=== PATIENT | female | born 1975 | race Caucasian/White ===

== ENCOUNTER 2019-04-15 15:41 | Observation (INO) ==
[2019-04-15] MEDS ORDERED: DUONEB 0.5 MG/3 MG ONE (16:02)
[2019-04-15] MEDS ORDERED: DUONEB 0.5 MG/3 MG NEB ONE (16:02)
[2019-04-15] MEDS ORDERED: NS 1000 ML 1,000 ML ONE ×2 (16:16→17:22)
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
[2019-04-15] MEDS ORDERED: NS 1000 ML 1,000 ML IV ONE ×2 (16:25→17:34)
[2019-04-15 16:31] LABS: BASOPHILS % (AUTO) 0.4 % (0.2-1.0); EOSINOPHILS # (AUTO) 0.2 x10^3/uL (0.0-0.2); EOSINOPHILS % (AUTO) 2.3 % (0.9-2.9); HEMATOCRIT 34.4 % (36.0-47.0); HEMOGLOBIN 11.4 g/dL (12.0-16.0); LYMPHOCYTES # (AUTO) 1.5 X10^3/uL (1.3-2.9); LYMPHOCYTES % (AUTO) 16.4 % (21.0-51.0); MEAN CORPUSCULAR HEMOGLOBIN 26.2 pg (27.0-34.0); MEAN CORPUSCULAR VOLUME 79.5 fL (80.0-100.0); MEAN PLATELET VOLUME 7.5 fL (7.4-11.0); MONOCYTES # (AUTO) 0.9 x10^3/uL (0.3-0.8); MONOCYTES % (AUTO) 9.9 % (0.0-13.0); NEUTROPHILS # (AUTO) 6.4 x10^3/uL (2.2-4.8); PLATELET COUNT 199 X10^3/uL (150.0-450.0); RED BLOOD COUNT 4.33 X10^6/uL (3.5-5.4); RED CELL DISTRIBUTION WIDTH 23.7 % (11.6-16.5)
[2019-04-15 16:52] LABS: ALANINE AMINOTRANSFERASE 79 Units/L (12-78); ALKALINE PHOSPHATASE 92 Units/L (46-116); ASPARTATE AMINO TRANSFERASE 26 Units/L (15-37); BLOOD UREA NITROGEN 25 mg/dL (7-18); CALCIUM 8.4 mg/dL (8.5-10.1); CARBON DIOXIDE 27.7 mmol/L (21-32); CHLORIDE 106 mmol/L (98-107); CKMB % 4.5 % (<4); COR CA(FOR HYPOALB) 9.2 mg/dL (8.5-10.1); COR NA(FOR HYPERGLY) 143 mmol/L (136-145); CREATINE KINASE 29 Units/L (26-192); CREATINE KINASE MB 1.3 ng/mL (0-4.0); CREATININE 1.75 mg/dL (0.55-1.02); SODIUM 142 mmol/L (136-145); TOTAL PROTEIN 6.5 g/dL (6.4-8.2); TROPONIN I < 0.02 ng/mL (0-1.5); eGFR NON BLACK RACES 33 (>60)
[2019-04-15 17:02] LABS: PLATELET MORPHOLOGY COMMENT NORMAL (NORMAL)
[2019-04-15 17:04] LABS: ANISOCYTOSIS 2+; HYPOCHROMASIA SLIGHT; MICROCYTOSIS SLIGHT; SCHISTOCYTES SLIGHT
[2019-04-15] MEDS: NS 1000 ML 1,000 ML IV SCH (20:17)
[2019-04-15] MEDS ORDERED: ATARAX TAB 25 MG PO PRN (21:56)
[2019-04-15] MEDS ORDERED: KLONOPIN TAB 0.5 MG PO PRN (21:56)
[2019-04-15] MEDS ORDERED: SINGULAIR TAB 10 MG PO SCH (21:56)
[2019-04-15] MEDS ORDERED: ALBUTEROL SULFATE IN SCH (21:56)
[2019-04-15 22:34] VITALS: BMI 47.7
[2019-04-15] MEDS ORDERED: PREVNAR 13 IM ONE (22:34)
[2019-04-15 23:13] LABS: CKMB % 3.5 % (<4); CREATINE KINASE 29 Units/L (26-192); CREATINE KINASE MB < 1.0 ng/mL (0-4.0); TROPONIN I < 0.02 ng/mL (0-1.5)
[2019-04-15] MEDS: ZOLOFT PO SCH (23:39)
[2019-04-15] MEDS: ZOCOR TAB 40 MG PO SCH (23:39)
[2019-04-15] MEDS: BUSPAR PO SCH (23:40)
[2019-04-15] MEDS: VISTARIL PO PRN (23:40)
[2019-04-15] MEDS: CELEXA PO SCH (23:40)
[2019-04-15] MEDS: KENALOG CREAM EXT SCH (23:41)
[2019-04-16] MEDS ORDERED: PROVENTIL NEB TX 0.083% 2.5MG/ 3ML NEB SCH
[2019-04-16] MEDS: PROVENTIL NEB TX 0.083% 2.5MG/ 3ML NEB SCH ×4 (00:10→17:35)
[2019-04-16 03:25] LABS: BILIRUBIN,URINE NEGATIVE (NEGATIVE); BLOOD/HEMOGLOBIN,URINE NEGATIVE (NEGATIVE); GLUCOSE, URINE NEGATIVE (NEGATIVE); KETONES,URINE NEGATIVE (NEGATIVE); LEUKOCYTE ESTERASE ,URINE NEGATIVE (NEGATIVE); NITRITES,URINE NEGATIVE (NEGATIVE); PROTEIN,URINE NEGATIVE (NEGATIVE); UROBILINOGEN,URINE NORMAL (NORMAL)
[2019-04-16 03:27] LABS: APPEARANCE,URINE CLEAR (CLEAR); COLOR,URINE PALE YELLOW (YELLOW)
[2019-04-16] MEDS: NS 1000 ML 1,000 ML IV SCH ×4 (05:50→22:26)
[2019-04-16 06:49] LABS: BASOPHILS % (AUTO) 0.5 % (0.2-1.0); EOSINOPHILS # (AUTO) 0.1 x10^3/uL (0.0-0.2); EOSINOPHILS % (AUTO) 1.6 % (0.9-2.9); HEMATOCRIT 31.7 % (36.0-47.0); HEMOGLOBIN 10.5 g/dL (12.0-16.0); LYMPHOCYTES # (AUTO) 1.6 X10^3/uL (1.3-2.9); MEAN CORPUSCULAR HEMOGLOBIN 26.6 pg (27.0-34.0); MEAN CORPUSCULAR HGB CONC 33.1 g/dL (33.0-35.0); MEAN CORPUSCULAR VOLUME 80.3 fL (80.0-100.0); MEAN PLATELET VOLUME 7.7 fL (7.4-11.0); MONOCYTES # (AUTO) 0.9 x10^3/uL (0.3-0.8); MONOCYTES % (AUTO) 9.9 % (0.0-13.0); NEUTROPHILS # (AUTO) 5.9 x10^3/uL (2.2-4.8); PLATELET COUNT 159 X10^3/uL (150.0-450.0); RED BLOOD COUNT 3.95 X10^6/uL (3.5-5.4); RED CELL DISTRIBUTION WIDTH 23.4 % (11.6-16.5); WHITE BLOOD COUNT 8.6 X10^3/uL (3.6-10.0)
[2019-04-16 06:52] LABS: ALANINE AMINOTRANSFERASE 63 Units/L (12-78); ALBUMIN 2.9 g/dL (3.4-5.0); ALKALINE PHOSPHATASE 82 Units/L (46-116); ASPARTATE AMINO TRANSFERASE 23 Units/L (15-37); BLOOD UREA NITROGEN 24 mg/dL (7-18); CALCIUM 7.9 mg/dL (8.5-10.1); CARBON DIOXIDE 24.4 mmol/L (21-32); CHLORIDE 108 mmol/L (98-107); COR CA(FOR HYPOALB) 8.8 mg/dL (8.5-10.1); CREATININE 1.33 mg/dL (0.55-1.02); SODIUM 142 mmol/L (136-145); TOTAL PROTEIN 6.3 g/dL (6.4-8.2); eGFR NON BLACK RACES 46 (>60)
[2019-04-16 07:03] LABS: ANISOCYTOSIS 1+; PLATELET MORPHOLOGY COMMENT NORMAL (NORMAL)
[2019-04-16 07:07] LABS: CKMB % 3.7 % (<4); CREATINE KINASE 30 Units/L (26-192); CREATINE KINASE MB 1.1 ng/mL (0-4.0); TROPONIN I < 0.02 ng/mL (0-1.5)
[2019-04-16 08:29] LABS: FREE T4 (FREE THYROXINE) 1.04 ng/dL (0.76-1.46); TSH (3RD GENERATION) 1.239 uIU/mL (0.358-3.74)
[2019-04-16 08:53] LABS: ABG BASE EXCESS 2.8 mmol/L (-2.0-2.0); ABG HCO3 27.9 mmol/L (22-26)
[2019-04-16 08:54] LABS: ABG ALLEN TEST POS
[2019-04-16] MEDS ORDERED: PULMICORT NEB TX 0.5 MG NEB SCH (09:00)
[2019-04-16] MEDS ORDERED: PATIENT'S HOME MEDICATION (Budesonide-Formoterol 1 INH) IN SCH (09:00)
[2019-04-16] MEDS: BUSPAR PO SCH ×2 (09:12→20:05)
[2019-04-16] MEDS: HEMOCYTE-PLUS PO SCH (09:12)
[2019-04-16] MEDS: LASIX PO SCH (09:13)
[2019-04-16] MEDS: MOBIC TAB 15 MG PO SCH ×2 (09:13→09:18)
[2019-04-16] MEDS: PULMICORT NEB TX 0.5 MG NEB SCH ×2 (09:15→21:00)
[2019-04-16] MEDS: KENALOG CREAM EXT SCH (09:20)
[2019-04-16] MEDS ORDERED: PHARMACY CONSULT - DOSE _____ XX SCH (11:00)
[2019-04-16] MEDS: LOVENOX INJ 40 MG SYR SC SCH (12:35)
[2019-04-16] MEDS: TYLENOL 325 MG TAB PO PRN ×2 (15:37→20:06)
[2019-04-16] MEDS: VISTARIL PO PRN (20:05)
[2019-04-16] MEDS: ZOCOR TAB 40 MG PO SCH (20:05)
[2019-04-16] MEDS: CELEXA PO SCH (20:05)
[2019-04-16] MEDS: ZOLOFT PO SCH (20:05)
[2019-04-16] MEDS ORDERED: ASPIRIN 81 MG CHEWTAB PO ONE (20:40)
[2019-04-16] MEDS ORDERED: SINGULAIR TAB 10 MG PO SCH (21:00)
[2019-04-16] MEDS ORDERED: NORCO 5/325 MG TAB PO PRN (22:30)
[2019-04-17] MEDS: PROVENTIL NEB TX 0.083% 2.5MG/ 3ML NEB SCH ×3 (00:35→11:59)
[2019-04-17] MEDS: NS 1000 ML 1,000 ML IV SCH ×2 (01:57→11:21)
[2019-04-17 06:06] LABS: BASOPHILS % (AUTO) 0.3 % (0.2-1.0); EOSINOPHILS # (AUTO) 0.1 x10^3/uL (0.0-0.2); EOSINOPHILS % (AUTO) 1.4 % (0.9-2.9); HEMATOCRIT 32.4 % (36.0-47.0); HEMOGLOBIN 10.8 g/dL (12.0-16.0); LYMPHOCYTES # (AUTO) 1.6 X10^3/uL (1.3-2.9); LYMPHOCYTES % (AUTO) 20.7 % (21.0-51.0); MEAN CORPUSCULAR HEMOGLOBIN 26.7 pg (27.0-34.0); MEAN CORPUSCULAR HGB CONC 33.2 g/dL (33.0-35.0); MEAN CORPUSCULAR VOLUME 80.4 fL (80.0-100.0); MEAN PLATELET VOLUME 7.7 fL (7.4-11.0); MONOCYTES # (AUTO) 0.9 x10^3/uL (0.3-0.8); MONOCYTES % (AUTO) 11.8 % (0.0-13.0); NEUTROPHILS # (AUTO) 5.2 x10^3/uL (2.2-4.8); NEUTROPHILS % (AUTO) 65.8 % (42.0-75.0); PLATELET COUNT 145 X10^3/uL (150.0-450.0); RED BLOOD COUNT 4.03 X10^6/uL (3.5-5.4); RED CELL DISTRIBUTION WIDTH 23.2 % (11.6-16.5); WHITE BLOOD COUNT 7.9 X10^3/uL (3.6-10.0)
[2019-04-17 06:15] LABS: ALANINE AMINOTRANSFERASE 50 Units/L (12-78); ALBUMIN 2.9 g/dL (3.4-5.0); ALKALINE PHOSPHATASE 82 Units/L (46-116); ASPARTATE AMINO TRANSFERASE 15 Units/L (15-37); BLOOD UREA NITROGEN 19 mg/dL (7-18); CALCIUM 8.2 mg/dL (8.5-10.1); CARBON DIOXIDE 26.9 mmol/L (21-32); CHLORIDE 106 mmol/L (98-107); COR CA(FOR HYPOALB) 9.1 mg/dL (8.5-10.1); CREATININE 1.12 mg/dL (0.55-1.02); SODIUM 141 mmol/L (136-145); TOTAL PROTEIN 6.4 g/dL (6.4-8.2); eGFR NON BLACK RACES 56 (>60)
[2019-04-17 06:43] LABS: ANISOCYTOSIS 1+; PLATELET MORPHOLOGY COMMENT NORMAL (NORMAL)
[2019-04-17] MEDS: PULMICORT NEB TX 0.5 MG NEB SCH (08:55)
[2019-04-17] MEDS ORDERED: LASIX IVP SCH (09:00)
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
[2019-04-17] MEDS: LOVENOX INJ 40 MG SYR SC SCH (09:09)
[2019-04-17] MEDS: HEMOCYTE-PLUS PO SCH (09:10)
[2019-04-17] MEDS: BUSPAR PO SCH (09:10)
[2019-04-17] MEDS: LASIX PO SCH (09:11)
[2019-04-17] MEDS ORDERED: ZOFRAN INJ 4 MG VIAL IVP PRN (09:48)
--- NOTE | 2019-04-17 12:34 | PCM.PROG ---
Progress Note - Progress Note for Day of Date of Exam: 04/16/19 - Subjective Subjective: 43 WF ER ADMISSION WITH CO SOB WITH EPISODE OF "GOING UNRESPONSIVE" IN FRONT OF HER FAMILY, FAMILY WAS CONCERNED SHE HAD A SEIZURE. PT HAS RECENTLY HAD MULTIPLE RECENT ADMISSIONS DUE TO BLOOD PRESSURE COMPLICATIONS. PT STATE SHE HAS BEEN DIAGNOSED WITH PULMONARY HYPERTENSION HAS BEEN UNDER THE CARE OF DR DUBON. PT ADMITTED FOR SERIAL CE AND EKGS, CE WERE STABLE. PT HAD BILATERAL LOWER EXTREMITY EDEMA, PLAN TO RESTART LASIX. - Past Medical Family Social History Past Med/Fam/Surg Hx: No changes since H&P Allergies: Allergies NSAIDS (Non-Steroidal Anti-Inflamma Allergy (Verified 04/15/19 15:48) - Review of Systems ROS: No change since H&P - Vital Signs and I&O's Vital Signs: Temperature 98.5 F Pulse Rate [Right Radial] 95 Pulse Rate 94 Respiratory Rate 21 Blood Pressure [Left Arm] 153/81 Blood Pressure 117/58 O2 Sat by Pulse Oximetry 99 Intake and Output: Intake & Output 04/15/19 04/16/19 04/17/19 04/18/19 11:59 11:59 11:59 11:59 Intake Total 2004 3940 / 3940 Output Total 1630 / 1630 Balance 2004 2310 / 2310 - Physical Exam Oriented: Normal Eyes: Normal Ear: Normal Nose: Normal Throat: Normal Respiratory: Diminished Cardiovascular: Edema : Normal Auscultation: Bowel Sounds: Normal Tenderness: Normal Skin: Normal Musculoskeletal: Right, Left, Leg, Back:Lumbar Psychiatric: Normal Speech Pattern: Clear, Appropriate - Laboratory and Diagnostics Result Diagrams: 04/17/19 05:28 04/17/19 05:28 Labs: Laboratory WBC 7.9 X10^3/uL (3.6-10.0) 04/17/19 05:28 RBC 4.03 X10^6/uL (3.5-5.4) 04/17/19 05:28 Hgb 10.8 g/dL (12.0-16.0) L 04/17/19 05:28 Hct 32.4 % (36.0-47.0) L 04/17/19 05:28 MCV 80.4 fL (80.0-100.0) 04/17/19 05:28 MCH 26.7 pg (27.0-34.0) L 04/17/19 05:28 MCHC 33.2 g/dL (33.0-35.0) 04/17/19 05:28 RDW 23.2 % (11.6-16.5) H 04/17/19 05:28 Plt Count 145 X10^3/uL (150.0-450.0) L 04/17/19 05:28 Plt Count Comment Adequate (ADEQUATE) 04/17/19 05:28 MPV 7.7 fL (7.4-11.0) 04/17/19 05:28 Neut % (Auto) 65.8 % (42.0-75.0) 04/17/19 05:28 Lymph % (Auto) 20.7 % (21.0-51.0) L 04/17/19 05:28 Darke % (Auto) 11.8 % (0.0-13.0) 04/17/19 05:28 Eos % (Auto) 1.4 % (0.9-2.9) 04/17/19 05:28 Baso % (Auto) 0.3 % (0.2-1.0) 04/17/19 05:28 Neut # (Auto) 5.2 x10^3/uL (2.2-4.8) H 04/17/19 05:28 Lymph # (Auto) 1.6 X10^3/uL (1.3-2.9) 04/17/19 05:28 Darke # (Auto) 0.9 x10^3/uL (0.3-0.8) H 04/17/19 05:28 Eos # (Auto) 0.1 x10^3/uL (0.0-0.2) 04/17/19 05:28 Baso # (Auto) 0.0 X10^3/uL (0.0-0.1) 04/17/19 05:28 Absolute Nucleated RBC 0.0 /100WBC 04/17/19 05:28 Plt Morphology Comment Normal (NORMAL) 04/17/19 05:28 RBC Morphology Abnormal (NORMAL) A 04/17/19 05:28 Hypochromasia Slight A 04/15/19 16:20 Anisocytosis 1+ A 04/17/19 05:28 Microcytosis Slight A 04/15/19 16:20 Schistocytes Slight A 04/15/19 16:20 Sample Site Right radial 04/16/19 08:42 ABG pH 7.410 (7.35-7.45) 04/16/19 08:42 ABG pCO2 44.0 mmHg (35.0-45.0) 04/16/19 08:42 ABG pO2 116.0 mmHg (80.0-100.0) H 04/16/19 08:42 ABG HCO3 27.9 mmol/L (22-26) H 04/16/19 08:42 ABG O2 Saturation 99.0 % (90-100) 04/16/19 08:42 ABG Base Excess 2.8 mmol/L (-2.0-2.0) H 04/16/19 08:42 Weston Test Pos 04/16/19 08:42 A-a Gradient 29.0 mmHg 04/16/19 08:42 FiO2 28.0 04/16/19 08:42 Blood Gas Comments Rangel well aw 04/16/19 08:42 Sodium 141 mmol/L (136-145) 04/17/19 05:28 Corrected Sodium TNP 04/17/19 05:28 Potassium 4.3 mmol/L (3.5-5.1) 04/17/19 05:28 Chloride 106 mmol/L (98-107) 04/17/19 05:28 Carbon Dioxide 26.9 mmol/L (21-32) 04/17/19 05:28 BUN 19 mg/dL (7-18) H 04/17/19 05:28 Creatinine 1.12 mg/dL (0.55-1.02) H 04/17/19 05:28 Est GFR (MDRD) Af Amer > 60 (>60) 04/17/19 05:28 Est GFR (MDRD) Non-Af 56 (>60) L 04/17/19 05:28 Glucose 85 mg/dL (65-99) 04/17/19 05:28 Calcium 8.2 mg/dL (8.5-10.1) L 04/17/19 05:28 Corrected Calcium 9.1 mg/dL (8.5-10.1) 04/17/19 05:28 Magnesium 1.9 mg/dL (1.7-2.9) 04/16/19 05:44 Total Bilirubin 0.50 mg/dL (0.2-1.0) 04/17/19 05:28 AST 15 Units/L (15-37) 04/17/19 05:28 ALT 50 Units/L (12-78) 04/17/19 05:28 Alkaline Phosphatase 82 Units/L (46-116) 04/17/19 05:28 Creatine Kinase 30 Units/L (26-192) 04/16/19 05:49 CK-MB (CK-2) 1.1 ng/mL (0-4.0) 04/16/19 05:49 CK/CKMB % Calc 3.7 % (<4) 04/16/19 05:49 Troponin I < 0.02 ng/mL (0-1.5) 04/16/19 05:49 Total Protein 6.4 g/dL (6.4-8.2) 04/17/19 05:28 Albumin 2.9 g/dL (3.4-5.0) L 04/17/19 05:28 Globulin 3.5 g/dL (2.5-4.5) 04/17/19 05:28 Albumin/Globulin Ratio 0.8 Ratio (1.1-2.1) L 04/17/19 05:28 Free T4 1.04 ng/dL (0.76-1.46) 04/16/19 05:44 TSH 3rd Generation 1.239 uIU/mL (0.358-3.74) 04/16/19 05:44 Specimen Type Random urine 04/16/19 03:00 Urine Color Pale yellow (YELLOW) 04/16/19 03:00 Urine Appearance Clear (CLEAR) 04/16/19 03:00 Urine pH 5.0 (5.0 - 8.0) 04/16/19 03:00 Ur Specific [place] 1.020 (1.000-1.030) 04/16/19 03:00 Urine Protein Negative (NEGATIVE) 04/16/19 03:00 Urine Glucose (UA) Negative (NEGATIVE) 04/16/19 03:00 Urine Ketones Negative (NEGATIVE) 04/16/19 03:00 Urine Occult Blood Negative (NEGATIVE) 04/16/19 03:00 Urine Nitrite Negative (NEGATIVE) 04/16/19 03:00 Urine Bilirubin Negative (NEGATIVE) 04/16/19 03:00 Urine Urobilinogen Normal (NORMAL) 04/16/19 03:00 Ur Leukocyte Esterase Negative (NEGATIVE) 04/16/19 03:00 Urine Opiates Screen Negative (NEG=<300) 04/16/19 14:50 Urine Methadone Screen Negative (NEG=<300) 04/16/19 14:50 Ur Barbiturates Screen Negative (NEG=<200) 04/16/19 14:50 Ur Phencyclidine Scrn Negative (NEG=<25) 04/16/19 14:50 Ur Amphetamines Screen Negative (NEG=<1000) 04/16/19 14:50 U Benzodiazepines Scrn Negative (NEG=<200) 04/16/19 14:50 Urine Cocaine Screen Negative (NEG=<300) 04/16/19 14:50 U Marijuana (THC) Screen Negative (NEG=<50) 04/16/19 14:50 - Plan (1) SOB (shortness of breath) Status: Acute Plan: SERIAL CE AND EKG. CXR Q AM. LASIX, BP CONTROL. SUPPLEMENTAL O2, CONTINUOUS CARDIAC MONITORING (2) Pulmonary hypertension Status: Acute (3) Hypertension Status: Acute Plan: CONTINUE HOME MEDICATIONS (4) NATTY (obstructive sleep apnea) Status: Acute
[2019-04-17 12:55] VITALS: BP 144/67
== END 2019-04-17 14:45 | disposition home or self-care (01) ==
LOC: ICU 15:41 → ER 15:41 → ICU 20:23
PROVIDERS: ADMIT Internal Medicine; ATTEND Internal Medicine
DX: J44.9 Chronic obstructive pulmonary disease, unspecified; R94.31 Abnormal electrocardiogram [ECG] [EKG]; R55 Syncope and collapse; I10 Essential (primary) hypertension; R53.1 Weakness; I27.20 Pulmonary hypertension, unspecified; G47.33 Obstructive sleep apnea (adult) (pediatric); R06.02 Shortness of breath; G40.909 Epilepsy, unspecified, not intractable, without status epilepticus
CPT/HCPCS: 36415; 36600; 71010; 71045; 80053; 80307; 81003; 82270; 82533; 82550; 82553; 82803; 83630; 83735; 84439; 84443; 84484; 85025; 87045; 87324; 87338; 87427; 87449; 87493; 87899; 93005; 94640; 96365; 96367; 96372; 96374; 99284; A4222; Q0177; 90670; G0378; G0434; J1650; J1940; J2405; J3490; J7030; J7613; J7620; J7626